=== PATIENT | male | born 1950 | race African-American/Black ===

== ENCOUNTER 2022-08-13 12:15 | Inpatient (IN) | payer BC, MEDICARE ==
[~2022-08-13] VITALS: Ht 182.9 cm; Wt 89.4 kg
[2022-08-13 12:18] VITALS: BP_SYST 141; PULSE 79; RESP 18; TEMP 97.9; O2SAT 96
[2022-08-13 13:01] LABS: BASOPHILS # (AUTO) 0.1 K/uL (0.0-0.2); BASOPHILS % (AUTO) 0.6 % (0.0-2.0); EOSINOPHILS # (AUTO) 0.4 K/uL (0.0-0.4); EOSINOPHILS % (AUTO) 3.4 % (0.0-4.0); HEMOGLOBIN 11.8 g/dL (14.0-18.0); LYMPHOCYTES # (AUTO) 1.2 K/uL (1.0-5.5); LYMPHOCYTES % (AUTO) 11.6 % (20.5-51.5); MEAN CORPUSCULAR HEMOGLOBIN 32 pg (27-31); MEAN CORPUSCULAR HGB CONC 33 % (32-36); MEAN CORPUSCULAR VOLUME 98 fL (79.0-98.0); MONOCYTES # (AUTO) 0.9 K/uL (0.0-1.0); MONOCYTES % (AUTO) 8.2 % (1.7-9.3); NEUTROPHILS # (AUTO) 8.2 K/uL (1.8-7.7); NEUTROPHILS % (AUTO) 76.2 % (40.0-70.0); PLATELET COUNT (AUTO) 158 K/uL (130-430); RED BLOOD CELL COUNT(AUTO) 3.68 MIL/uL (4.2-6.2); RED CELL DISTRIBUTION WIDTH 13.3 % (9.0-15.0); WHITE BLOOD COUNT (AUTO) 10.7 K/uL (4.8-10.8)
[2022-08-13 13:20] LABS: INR 1.1 (0.80-1.20)
[2022-08-13 13:23] LABS: ALANINE AMINOTRANSFERASE 15 U/L (12-78); ALBUMIN 3.2 g/dL (3.4-4.8); ANION GAP 0 (5-15); ASPARTATE AMINOTRANSFERASE 30 U/L (10-37); CALCIUM 8.8 mg/dL (8.4-11.0); CHLORIDE 100 mmol/L (98-107); GLUCOSE 81 mg/dL (70-99); TOTAL BILIRUBIN 0.3 mg/dL (0.0-1.0); UREA NITROGEN, BLOOD 14 mg/dL (8-21)
[2022-08-13] MEDS ORDERED: NALO4SPR NS (14:06)
[2022-08-13] MEDS ORDERED: FOLI-43 PO (14:06)
[2022-08-13] MEDS ORDERED: MULT-1117 PO (14:06)
[2022-08-13] MEDS ORDERED: FURO-149 PO (14:06)
[2022-08-13] MEDS ORDERED: SENN-153 PO (14:06)
[2022-08-13] MEDS ORDERED: ACET325T PO (14:06)
[2022-08-13] MEDS ORDERED: ESCI10TA PO (14:06)
[2022-08-13] MEDS ORDERED: ALBMDI INH (14:06)
[2022-08-13] MEDS ORDERED: POTA-197 PO (14:06)
[2022-08-13] MEDS ORDERED: UMEC62.5 IH (14:06)
[2022-08-13] MEDS ORDERED: BUDE6HFA INH (14:06)
[2022-08-13] MEDS ORDERED: BUSP5TAB3 PO (14:06)
[2022-08-13] MEDS ORDERED: PERC10 PO (14:06)
[2022-08-13] MEDS ORDERED: TAMS-11 PO (14:06)
[2022-08-13] MEDS ORDERED: BISA10SU77 RC (14:06)
[2022-08-13] MEDS ORDERED: METH-797 PO (14:06)
[2022-08-13] MEDS ORDERED: RIFA550T5 PO (14:07)
[2022-08-13] MEDS ORDERED: LORazepam 2 MG/ML VIAL IVP ONE (14:15)
[2022-08-13] MEDS: D5/0.45 NS 1,000 ML IV SCH (17:36)
[2022-08-13 17:42] VITALS: BP_SYST 118; PULSE 98; RESP 20; TEMP 97.8; O2SAT 95
[2022-08-13 19:30] VITALS: O2SAT 98
[2022-08-13 20:00] VITALS: BP_SYST 137; PULSE 80; RESP 22; TEMP 98.3; O2SAT 98
[2022-08-13] MEDS ORDERED: LORazepam 1 MG TABLET PO PRN (20:30)
[2022-08-13] MEDS ORDERED: IPRATROPIUM/ALBUTEROL SULFATE 3 ML AMPUL.NEB (DUONEB) ONE (20:40)
[2022-08-13 20:55] VITALS: O2SAT 95
[2022-08-13 20:58] VITALS: BP_SYST 118; PULSE 94; O2SAT 95
[2022-08-13] MEDS: methylPREDNISolone SOD SUCC/PF 62.5 MG/ML VIAL IVP SCH (21:19)
[2022-08-13] MEDS: HYDROcodone/ACETAMIN 10-325 MG TAB PO PRN (21:20)
[2022-08-14] VITALS (10 sets, daily range): BP systolic 129–137; PULSE 63–80; RESP 16–20; TEMP 97.7–98.7; O2SAT 96–99
[2022-08-14] MEDS: IPRATROPIUM/ALBUTEROL SULFATE 3 ML AMPUL.NEB (DUONEB) INH PRN ×3 (00:02→13:26)
[2022-08-14] MEDS: D5/0.45 NS 1,000 ML IV SCH ×2 (03:05→17:00)
[2022-08-14] MEDS: methylPREDNISolone SOD SUCC/PF 62.5 MG/ML VIAL IVP SCH ×3 (05:36→22:01)
[2022-08-14] MEDS: HYDROcodone/ACETAMIN 10-325 MG TAB PO PRN ×2 (05:37→15:10)
[2022-08-14 09:44] LABS: BASOPHILS % (AUTO) 0.4 % (0.0-2.0); HEMATOCRIT 33.7 % (36-54); LYMPHOCYTES # (AUTO) 0.7 K/uL (1.0-5.5); LYMPHOCYTES % (AUTO) 6.3 % (20.5-51.5); MEAN CORPUSCULAR HEMOGLOBIN 32 pg (27-31); MEAN CORPUSCULAR HGB CONC 33 % (32-36); MEAN CORPUSCULAR VOLUME 97 fL (79.0-98.0); MONOCYTES # (AUTO) 0.1 K/uL (0.0-1.0); MONOCYTES % (AUTO) 0.6 % (1.7-9.3); NEUTROPHILS # (AUTO) 10.5 K/uL (1.8-7.7); NEUTROPHILS % (AUTO) 92.7 % (40.0-70.0); PLATELET COUNT (AUTO) 171 K/uL (130-430); RED BLOOD CELL COUNT(AUTO) 3.47 MIL/uL (4.2-6.2); RED CELL DISTRIBUTION WIDTH 13.2 % (9.0-15.0); WHITE BLOOD COUNT (AUTO) 11.3 K/uL (4.8-10.8)
[2022-08-14 10:04] LABS: ANION GAP 3 (5-15); CALCIUM 8.1 mg/dL (8.4-11.0); CHLORIDE 99 mmol/L (98-107); GLUCOSE 170 mg/dL (70-99); UREA NITROGEN, BLOOD 12 mg/dL (8-21)
[2022-08-14 10:09] LABS: ALANINE AMINOTRANSFERASE 15 U/L (12-78); ALBUMIN 2.7 g/dL (3.4-4.8); ASPARTATE AMINOTRANSFERASE 27 U/L (10-37); TOTAL BILIRUBIN 0.3 mg/dL (0.0-1.0)
[2022-08-14] MEDS: cefTRIAXone 1 GM in D5W 50 ML IV SCH (10:44)
[2022-08-14] MEDS ORDERED: OXYCODONE/ACETAMINOPHEN *10*mg/325 mg TABLET PO PRN (12:30)
[2022-08-14] MEDS: RIFAXIMIN 550 MG TABLET PO SCH (20:34)
[2022-08-14] MEDS: busPIRone HCL 5 MG TABLET PO SCH (20:34)
[2022-08-14] MEDS: FUROSEMIDE 40 MG TABLET PO SCH (20:34)
[2022-08-14] MEDS ORDERED: TAMSULOSIN HCL 0.4 MG CAP PO SCH (21:00)
[2022-08-14] MEDS ORDERED: SENNOSIDES 8.6 MG TABLET PO SCH (21:00)
[2022-08-15] VITALS (10 sets, daily range): BP systolic 136–148; PULSE 54–90; RESP 16–20; TEMP 97.1–98.8; O2SAT 96–99
[2022-08-15] MEDS: methylPREDNISolone SOD SUCC/PF 62.5 MG/ML VIAL IVP SCH ×2 (05:22→15:36)
[2022-08-15 06:31] LABS: HEMATOCRIT 35.4 % (36-54); HEMOGLOBIN 11.5 g/dL (14.0-18.0); LYMPHOCYTES # (AUTO) 0.9 K/uL (1.0-5.5); LYMPHOCYTES % (AUTO) 7.2 % (20.5-51.5); MEAN CORPUSCULAR HEMOGLOBIN 32 pg (27-31); MEAN CORPUSCULAR HGB CONC 33 % (32-36); MEAN CORPUSCULAR VOLUME 97 fL (79.0-98.0); MONOCYTES # (AUTO) 0.5 K/uL (0.0-1.0); NEUTROPHILS # (AUTO) 11.7 K/uL (1.8-7.7); NEUTROPHILS % (AUTO) 88.8 % (40.0-70.0); PLATELET COUNT (AUTO) 186 K/uL (130-430); RED BLOOD CELL COUNT(AUTO) 3.65 MIL/uL (4.2-6.2); RED CELL DISTRIBUTION WIDTH 13.3 % (9.0-15.0); WHITE BLOOD COUNT (AUTO) 13.2 K/uL (4.8-10.8)
[2022-08-15 06:46] LABS: ANION GAP 4 (5-15); CALCIUM 8.6 mg/dL (8.4-11.0); CHLORIDE 99 mmol/L (98-107); CREATININE 0.85 mg/dL (0.55-1.30); GLUCOSE 142 mg/dL (70-99); UREA NITROGEN, BLOOD 13 mg/dL (8-21)
[2022-08-15] MEDS ORDERED: CITALOPRAM HYDROBROMIDE 20 MG TABLET PO SCH (09:00)
[2022-08-15] MEDS ORDERED: MULTIVITAMINS TAB 1 TABLET PO SCH (09:00)
[2022-08-15] MEDS ORDERED: METHADONE HCL 10 MG TABLET PO SCH (09:00)
[2022-08-15] MEDS ORDERED: FOLIC ACID 1 MG TABLET PO SCH (09:00)
[2022-08-15] MEDS: busPIRone HCL 5 MG TABLET PO SCH (09:08)
[2022-08-15] MEDS: RIFAXIMIN 550 MG TABLET PO SCH (09:08)
[2022-08-15] MEDS: FUROSEMIDE 40 MG TABLET PO SCH (09:09)
[2022-08-15] MEDS: IPRATROPIUM/ALBUTEROL SULFATE 3 ML AMPUL.NEB (DUONEB) INH PRN ×2 (10:43→15:40)
[2022-08-15] MEDS: cefTRIAXone 1 GM in D5W 50 ML IV SCH (11:41)
[2022-08-15] MEDS ORDERED: PRED20TA PO (12:27)
== END 2022-08-15 16:35 | DRG 720 ==
LOC: SED 12:15 → STU 15:22 → SMU 08-14 14:38
PROVIDERS: ADMIT Internal Medicine; ATTEND Internal Medicine
DX: A41.9 Sepsis, unspecified organism (principal); J96.21 Acute and chronic respiratory failure with hypoxia; E43 Unspecified severe protein-calorie malnutrition; J44.1 Chronic obstructive pulmonary disease with (acute) exacerbation; L03.115 Cellulitis of right lower limb; Z68.26 Body mass index [BMI] 26.0-26.9, adult; I10 Essential (primary) hypertension; J20.9 Acute bronchitis, unspecified; L85.3 Xerosis cutis; F41.9 Anxiety disorder, unspecified; F32.A Depression, unspecified; I44.0 Atrioventricular block, first degree; B19.20 Unspecified viral hepatitis C without hepatic coma; Z74.01 Bed confinement status; Z87.891 Personal history of nicotine dependence
CPT/HCPCS: 36415; 71045; 76376; 80048; 80053; 83605; 83880; 84484; 85025; 85610-TC; 85730-TC; 87070-TC; 87081; 87101; 87186-TC; 93005; 93923; 93970; 94640; 94664; 94760; 96374; 99285; G0378; J0696; J2060; J2930; J7060